=== PATIENT | female | born 1965 | race African-American/Black ===

== ENCOUNTER 2018-04-15 12:39 | Day surgery (SDC) | payer OTHER ==
[2018-04-15] MEDS ORDERED: MIDAZOLAM 1 MG/ML 2 ML INJ ×3 (14:28→18:28)
[2018-04-15] MEDS ORDERED: FENTAnyl 50 MCG/ML VIAL (14:29)
== END 2018-04-15 16:29 | disposition home or self-care (01) ==
LOC: GIL 12:39
DX: Z12.11 Encounter for screening for malignant neoplasm of colon (principal); D12.2 Benign neoplasm of ascending colon; K64.4 Residual hemorrhoidal skin tags
CPT/HCPCS: 45380; 88305